=== PATIENT | male | born 1950 | race Caucasian/White ===

== ENCOUNTER 2023-09-02 06:14 | Day surgery (SDC) | payer MEDICARE, OTHER ==
[2023-09-01 08:50] VITALS: BMI 27.9
[~2023-09-02 06:14] MED LIST: EPINEPHrine 0.3 MG in Ophthalmic Irrigation Solution 500 ML IRR SCH
[2023-09-02] MEDS ORDERED: Cyclopentolate W/ Phenylephrin 40 DROP/2 ML BOT ONE (06:29)
[2023-09-02] MEDS ORDERED: PROPOFOL 40 ML ONE (06:52)
[2023-09-02] MEDS ORDERED: Midazolam HCl 2 mg/2 ml Vial ONE (06:52)
[2023-09-02] MEDS ORDERED: Bupivacaine 0.75% 10 ML VIAL ONE (07:40)
[2023-09-02] MEDS ORDERED: CEFAZOLIN 1 GM VIAL ONE (07:40)
[2023-09-02] MEDS ORDERED: Lidocaine 1% PF 5 ML VIAL ONE (07:40)
[2023-09-02] MEDS ORDERED: Triamcinolone 40 MG/ML VIAL ONE (07:40)
[2023-09-02] MEDS ORDERED: Maxitrol 0.1% Opth Oint 3.5 GM TUBE ONE (07:40)
[2023-09-02] MEDS ORDERED: Lidocaine 4% PF 5 ML AMP ONE (07:40)
== END 2023-09-02 08:45 | disposition home or self-care (01) ==
LOC: SDC 06:14
PROVIDERS: ATTEND Ophthalmology Retina Specialist
PROC: 08T53ZZ Resection of Left Vitreous, Percutaneous Approach (ICD-10-PCS; principal; 2023-09-02)
DX: H43.392 Other vitreous opacities, left eye (principal)
CPT/HCPCS: 67036; J0171; J0690; J2250; J2704; J3301; J3490